=== PATIENT | female | born 2005 | race Caucasian/White ===

== ENCOUNTER 2024-07-29 07:53 | Outpatient (CLI) | payer BC ==
[~2024-07-29] VITALS: Ht 167.7 cm; Wt 90.7 kg
[2024-07-29 08:26] VITALS: BP 128/75; PULSE 78; TEMP 98.2
[2024-07-29] MEDS ORDERED: CONCERTA27 MG PO (08:34)
[2024-07-29] MEDS ORDERED: NIKKI 3 MG-0.01 EACH PO (08:35)
[2024-07-29] MEDS ORDERED: FLOVENT 110MCG7.9 GM IH (08:35)
[2024-07-29] MEDS ORDERED: WELLBUTRIN XL300 M1 PO (08:35)
[2024-07-29] MEDS ORDERED: NASACORT OTC NS (08:36)
[2024-07-29] MEDS ORDERED: MELATONIN ER10 MG PO (08:37)
[2024-07-29 10:15] VITALS: BP 121/78; PULSE 70
[2024-07-29 10:30] VITALS: BP 111/70; PULSE 73
[2024-07-29 10:45] VITALS: BP 117/70; PULSE 72
--- NOTE | 2024-07-29 11:23 | NUR ---
PT TOLERATED POST-OP PERIOD WELL. VS REMAINED WITHIN NORMAL LIMITS. PT REMAINED FREE FROM SYNCOPAL EPISODES. PT AMBULATED TO MAIN LOBBY UPON DISHCARGE. IV DISCONTINUED. PT FREE FROM ACUTE CONCERNS AND COMPLAINTS.
== END 2024-07-29 11:24 | disposition home or self-care (01) ==
LOC: COL.CAR 07:53
DX: I95.1 Orthostatic hypotension (principal)